=== PATIENT | female | born 2000 | race Caucasian/White ===

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

== ENCOUNTER 2021-02-25 09:25 | Emergency (ER) | payer OTHER ==
[~2021-02-25] VITALS: Ht 172.7 cm; Wt 114.8 kg
[~2021-02-25 09:25] MED LIST: MAGN400S60 PO
[2021-02-25 09:30] VITALS: BP 144/73
--- NOTE | 2021-02-25 09:35 | NUR ---
Patient ambulated to bed 12 with steady/even gait.
--- NOTE | 2021-02-25 09:42 | NUR ---
PATIENT PRESENTS TO ED WITH C/O HEADACHE -FRONTAL AND TOP OF HER HEAD X 5DAYS, HAS USED MOTRIN AND EXCEDRIN WITH MINIMAL RELIEF. DENIES N/V/D; SKIN IS PINK/WARM/DRY; AAOX4 WITH EVEN AND STEADY GAIT;Pupils equal and reactive to light bilaterally. No facial droop noted. No smile deficit noted. Speech normal for patient. Patient is alert and oriented to person, place, time and event. 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 Bilateral foot push equal. LUNGS CLEAR BL; HR EVEN AND REGULAR; PT DENIES ANY FEVER, CP, SOB, OR COUGH AT THIS TIME; PATIENT STATES PAIN OF 0/10 AT THIS TIME; VSS; PATIENT POSITIONED FOR COMFORT; HOB ELEVATED; BEDRAILS UP X1 BED DOWN. S/O AT BEDSIDE
[2021-02-25] MEDS ORDERED: METOCLOPRAMIDE 10 MG/2 ML INJ VIAL IVP ONE (10:00)
[2021-02-25] MEDS ORDERED: NACL 0.9% 1,000 ML IV ONE (10:00)
[2021-02-25] MEDS ORDERED: diphenhydrAMINE 50 MG/ML VIAL IVP ONE (10:00)
[2021-02-25] MEDS ORDERED: KETOROLAC 15 MG/ML VIAL IVP ONE (10:00)
--- NOTE | 2021-02-25 10:15 | NUR ---
IV access obtained in left AC c#20, IVF bolus started.
--- NOTE | 2021-02-25 10:32 | NUR ---
resting quietly, warm blanket applied for comfort.
--- NOTE | 2021-02-25 10:48 | NUR ---
RESTING QUIETLY, LIGHTS ARE DIMMED, S/O AT BEDSIDE. REPORTS RELIEF.
[2021-02-25] MEDS ORDERED: ACET-9234 PO (10:55)
[2021-02-25 11:08] VITALS: BP 127/88
--- NOTE | 2021-02-25 11:09 | NUR ---
Patient discharged with v/s stable. Written and verbal after care instructions given and explained. Patient alert, oriented and verbalized understanding of instructions. Ambulatory with steady gait. All questions addressed prior to discharge. ID band removed. Patient advised to follow up with PMD. Rx of Butalb/Acetaminophen/Caffeine (Fioricet) given. Patient educated on indication of medication including possible reaction and side effects. Opportunity to ask questions provided and answered.
== END 2021-02-25 11:08 | disposition home or self-care (01) ==
LOC: MED 09:25
DX: R51.9 Headache, unspecified (principal); Z91.010 Allergy to peanuts
CPT/HCPCS: 96361; 96374; 96375; 99284; J1200; J1885; J2765; J7030

== ENCOUNTER 2021-05-24 15:02 | Emergency (ER) | payer OTHER ==
[~2021-05-24] VITALS: Ht 172.7 cm; Wt 113.9 kg
[~2021-05-24 15:02] MED LIST changes: +ACET-9234 PO
[2021-05-24 15:05] VITALS: BP 146/83
--- NOTE | 2021-05-24 15:09 | NUR ---
PT SENT TO LOBBY
--- NOTE | 2021-05-24 15:28 | NUR ---
PT AMBULATED TO BED 7
--- NOTE | 2021-05-24 16:08 | NUR ---
20/F BIB SELF WITH C/O HEADACHE X1 DAY. REPORTS TAKING EXCEDRIN WITH MINOR RELIEF BUT STATES IT WAS GIVING HER CHEST PAIN. DENIES N/V AND BLURRED VISION. PT STATED SHE HAD A HEADACHE LAST WEEK ON SATURDAY WELL. PT CURRENTLY EXPERINCING PHOTOPHOBIA AT THIS TIME. MEDHX: DENIES ALLERGIES: DENIES
[2021-05-24] MEDS: NACL 0.9% 1,000 ML IV ONE (16:12)
[2021-05-24] MEDS: KETOROLAC 30 MG/ML VIAL IVP ONE (16:17)
[2021-05-24] MEDS: METOCLOPRAMIDE 10 MG/2 ML INJ VIAL IVP ONE (16:18)
[2021-05-24] MEDS: diphenhydrAMINE 50 MG/ML VIAL IVP ONE (16:18)
--- NOTE | 2021-05-24 16:59 | NUR ---
PATIENT RESTING IN BED WITH LIGHTS ON AND ON HER SIDE. PT STATED PAIN RELIEF FROM THE MEDICATIONS AND FLUIDS GIVEN. VITAL SIGNS STABLE AND CHARTED
[2021-05-24] MEDS ORDERED: IMI25 PO (17:09)
[2021-05-24 17:29] VITALS: BP 102/62
--- NOTE | 2021-05-24 17:29 | NUR ---
Patient discharged with v/s stable. Written and verbal after care instructions given and explained. Patient alert, oriented and verbalized understanding of instructions. Ambulatory with steady gait. All questions addressed prior to discharge. ID band removed. Patient advised to follow up with PMD. Rx of IMITREX given. Patient educated on indication of medication including possible reaction and side effects. Opportunity to ask questions provided and answered.
== END 2021-05-24 17:29 | disposition home or self-care (01) ==
LOC: MED 15:02
DX: G43.909 Migraine, unspecified, not intractable, without status migrainosus (principal); Z79.899 Other long term (current) drug therapy; Z91.018 Allergy to other foods
CPT/HCPCS: 96361; 96374; 96375; 99284; J1200; J1885; J2765; J7030